=== PATIENT | female | born 1970 | race Caucasian/White ===

== ENCOUNTER 2018-10-30 14:59 | Emergency (ER) | payer BC ==
[~2018-10-30] VITALS: Ht 160 cm; Wt 113.4 kg
[2018-10-30] MEDS ORDERED: MECLIZINE HCL25 M2 PO (15:03)
[2018-10-30] MEDS ORDERED: OMEPRAZOLE40 MG PO (15:03)
[2018-10-30] MEDS ORDERED: VITAMIN D350000 UNIT PO (15:05)
[2018-10-30] MEDS ORDERED: LOSARTAN-HCTZ1 EACH PO (15:05)
== END 2018-10-30 18:50 | disposition home or self-care (01) ==
LOC: ED 14:59
DX: T17.228A Food in pharynx causing other injury, initial encounter (principal); F45.8 Other somatoform disorders; R07.0 Pain in throat; Z79.899 Other long term (current) drug therapy; X58.XXXA Exposure to other specified factors, initial encounter; Y93.89 Activity, other specified; Y92.89 Other specified places as the place of occurrence of the external cause; Y99.8 Other external cause status